=== PATIENT | female | born 1940 | race Caucasian/White ===

== ENCOUNTER 2022-07-28 07:46 | Outpatient (CLI) | payer MEDICARE | END 2022-07-28 07:47 | disposition home or self-care (01) | LOC: CT 07:46 | PROVIDERS: ATTEND Family Medicine | DX: R10.84 Generalized abdominal pain (principal); K52.9 Noninfective gastroenteritis and colitis, unspecified; R91.8 Other nonspecific abnormal finding of lung field | CPT/HCPCS: 74176; 82565 ==

== ENCOUNTER 2022-10-07 13:27 | Outpatient (CLI) | payer MEDICARE | END 2022-10-07 13:28 | disposition home or self-care (01) | LOC: ULT 13:27 | PROVIDERS: ATTEND Internal Medicine Nephrology | DX: I12.9 Hypertensive chronic kidney disease with stage 1 through stage 4 chronic kidney disease, or unspecified chronic kidney disease (principal); N18.30 Chronic kidney disease, stage 3 unspecified; N28.1 Cyst of kidney, acquired; N27.1 Small kidney, bilateral | CPT/HCPCS: 76770 ==

== ENCOUNTER 2022-11-05 14:07 | Outpatient (CLI) | payer MEDICARE | END 2022-11-05 14:08 | disposition home or self-care (01) | LOC: BICRAD 14:07 | PROVIDERS: ATTEND Family Medicine | DX: M54.42 Lumbago with sciatica, left side (principal) | CPT/HCPCS: 72100 ==

== ENCOUNTER 2024-04-25 11:52 | Outpatient (CLI) | payer MEDICARE | END 2024-04-25 11:53 | disposition home or self-care (01) | LOC: BICRAD 11:52 | PROVIDERS: ATTEND Family Medicine | DX: Z11.1 Encounter for screening for respiratory tuberculosis (principal) | CPT/HCPCS: 71046 ==